=== PATIENT | male | born 1990 | race Caucasian/White ===

== ENCOUNTER 2023-01-21 17:20 | Emergency (ER) | payer MEDICAID, OTHER ==
[~2023-01-21] VITALS: Ht 175.3 cm; Wt 86.0 kg
[2023-01-21 17:31] VITALS: BP 122/72; PULSE 60; RESP 20; TEMP 98.3; O2SAT 98
== END 2023-01-21 21:35 | disposition left against medical advice (07) ==
LOC: ER 17:20
DX: M79.642 Pain in left hand (principal); Z53.21 Procedure and treatment not carried out due to patient leaving prior to being seen by health care provider
CPT/HCPCS: 99281